=== PATIENT | male | born 1985 | race Caucasian/White ===

== ENCOUNTER 2017-03-09 19:38 | Emergency (ER) | payer OTHER ==
[~2017-03-09] VITALS: Ht 180.3 cm; Wt 66.0 kg
[~2017-03-09 19:38] MED LIST: AMOXICILLIN500 MG PO; BACTRIM DS1 TAB PO; BENADRYL 50MG C50 MG PO; CLARITIN10 MG PO; DOXYCYCL HYC100 M4 PO; KEFLEX500 M1 PO; KEPPRA500 M2 PO; LORTAB 10 PO; LORTAB 10-325 M1 TAB PO; Levaquin PO; MOTRIN800 MG PO; NAPROSYN500 MG PO; NO HOME MEDS; NUPERCAINAL1 % RE; QUETIAPINE FUM100 MG PO; ROBITUSSIN AC10 ML PO; TESSALON PER100 MG PO; TOPAMAX25 MG PO; ULTRAM50 M1 PO
[2017-03-09 20:07] LABS: HEMATOCRIT 47.7 % (39.0-50.0); IMMATURE GRANULOCYTES 0.1 % (0.0-1.0); MEAN CORPUSCULAR HGB CONC 35.6 g/L CALC (32.0-36.0); NEUT# 5.75 thou/uL (1.82-7.42); RED BLOOD COUNT 5.48 mill/uL (4.70-6.10); RED CELL DISTRI WIDTH 12.1 % (11.5-15.5)
[2017-03-09 20:16] LABS: ALBUMIN 4.4 g/dL (3.2-5.0); ALKALINE PHOSPHATASE 75 u/l (38-126); ANION GAP 18 (6-22 (CALC)); BILIRUBIN, TOTAL 0.8 mg/dL (0.0-1.4); BUN 16 mg/dL (9-20); BUN/CREATININE RATIO 17 (12-20 (CALC)); CALCIUM 9.3 mg/dL (8.4-10.2); CARBON DIOXIDE 18 mmol/l (22-30); CHLORIDE 111 mmol/l (95-108); GFR > 60 ML/MIN (>=60 (CALC)); GFR FOR AFR.AMER. > 60 ML/MIN (>=60 (CALC)); GLUCOSE 74 mg/dL (75-110); POTASSIUM 3.6 mmol/l (3.5-5.1); SGOT/AST 29 u/l (17-59); SGPT/ALT 80 u/l (21-72); SODIUM 144 mmol/l (137-146); TOTAL PROTEIN 7.2 g/dL (6.3-8.2)
[2017-03-09 20:44] VITALS: BP 104/62
== END 2017-03-09 20:52 | DRG 101 ==
LOC: ED 19:38
PROVIDERS: Emergency Medicine
DX: G40.909 Epilepsy, unspecified, not intractable, without status epilepticus (principal); F31.9 Bipolar disorder, unspecified; F41.9 Anxiety disorder, unspecified; I51.7 Cardiomegaly

== ENCOUNTER → 2018-08-11 | Outpatient (REF) | payer OTHER | END | disposition home or self-care (01) | DRG 645 | LOC: LABSPEC 12:54 | PROVIDERS: ATTEND Nurse Practitioner Family | DX: E04.9 Nontoxic goiter, unspecified (principal) ==

== ENCOUNTER → 2018-08-13 | Outpatient (REF) | payer OTHER | END | disposition home or self-care (01) | DRG 392 | LOC: DI 13:43 | PROVIDERS: ATTEND Nurse Practitioner Family | DX: R13.10 Dysphagia, unspecified (principal) ==

== ENCOUNTER 2021-04-24 13:10 | Emergency (ER) | payer SELFPAY ==
[~2021-04-24] VITALS: Ht 180.3 cm; Wt 63.6 kg
[2021-04-24] MEDS ORDERED: BACTROBAN TOP (14:17)
[2021-04-24] MEDS ORDERED: STROMECTOL3 MG PO (14:17)
[2021-04-24 14:25] VITALS: BP 125/84
== END 2021-04-24 14:25 | disposition home or self-care (01) | DRG 882 ==
LOC: ED 13:10
DX: F42.4 Excoriation (skin-picking) disorder (principal); B86 Scabies

== ENCOUNTER 2021-09-21 05:54 | Emergency (ER) | payer SELFPAY ==
[~2021-09-21] VITALS: Ht 180.3 cm; Wt 45.0 kg
[2021-09-21] VITALS (9 sets, daily range): BP systolic 103–142; BP diastolic 44–85
[~2021-09-21 05:54] MED LIST changes: +BACTROBAN TOP; +STROMECTOL3 MG PO
[2021-09-21 06:38] LABS: IMMATURE GRANULOCYTES 0.1 % (0.0-5.0); MEAN CORPUSCULAR HGB 21.5 pG CALC (26.0-32.0); MEAN CORPUSCULAR HGB CONC 29.2 g/dL CAL (32.0-36.0); NEUT# 7.76 thou/uL (1.82-7.42); RED BLOOD COUNT 5.76 mill/uL (4.70-6.10); RED CELL DISTRI WIDTH 21.2 % (11.5-15.5)
[2021-09-21 06:45] LABS: HEMATOCRIT 42.5 % (39.0-50.0); HEMOGLOBIN 12.4 g/dl (14.0-18.0); MEAN CELL VOLUME 73.8 fL CALC (80.0-100.0)
[2021-09-21 07:07] LABS: ALBUMIN 4.8 g/dL (3.2-5.0); ALKALINE PHOSPHATASE 92 u/l (38-126); ANION GAP 16 (6-22 (CALC)); BUN 22 mg/dL (9-20); BUN/CREATININE RATIO 24 (12-20 (CALC)); CARBON DIOXIDE 23 mmol/l (22-30); CHLORIDE 104 mmol/l (95-108); CREATININE 0.9 mg/dL (0.7-1.3); GFR > 60 ML/MIN (>=60 (CALC)); GFR FOR AFR.AMER. > 60 ML/MIN (>=60 (CALC)); POTASSIUM 4.1 mmol/l (3.5-5.1); SGOT/AST 37 u/l (17-59); SODIUM 139 mmol/l (137-146); TOTAL PROTEIN 8.5 g/dL (6.3-8.2)
[2021-09-21 07:08] LABS: BILIRUBIN, TOTAL 0.3 mg/dL (0.0-1.4)
[2021-09-21 07:19] LABS: MYOGLOBIN 136 ng/mL (0 - 121)
[2021-09-21] MEDS ORDERED: OXYCODONE5 M1 PO (07:47)
[2021-09-21] MEDS ORDERED: VALIUM2 MG PO ×2 (07:48→08:12)
[2021-09-21] MEDS ORDERED: OXYCODO-APAP1 TA2 PO (08:12)
[2021-09-21] MEDS ORDERED: ELIQUIS2.5 MG (08:13)
[2021-09-21 09:53] LABS: URINE BILIRUBIN - DIPSTICK NEGATIVE (NEGATIVE); URINE BLOOD DIPSTICK NEGATIVE (NEGATIVE); URINE COLOR YELLOW; URINE GLUCOSE - DIPSTICK NEGATIVE (NEGATIVE); URINE KETONE NEGATIVE (NEGATIVE); URINE LEUK ESTERASE NEGATIVE (NEGATIVE); URINE PROTEIN - DIPSTICK NEGATIVE (NEG-TRACE); URINE SPECIFIC GRAVITY 1.025; URINE UROBILINOGEN - DIPSTICK 0.2 E.U./dL (0.2)
[2021-09-21 10:00] LABS: URINE NITRITE - DIPSTICK NEGATIVE (Negative)
== END 2021-09-21 10:49 | disposition short-term general hospital (02) | DRG 101 ==
LOC: ED 05:54
PROVIDERS: Emergency Medicine
DX: G40.409 Other generalized epilepsy and epileptic syndromes, not intractable, without status epilepticus (principal); F17.200 Nicotine dependence, unspecified, uncomplicated; Z20.822 Contact with and (suspected) exposure to COVID-19
CPT/HCPCS: J1953; J2060

== ENCOUNTER 2021-10-03 11:08 | Emergency (ER) | payer SELFPAY ==
[2021-10-03] VITALS (10 sets, daily range): BP systolic 107–118; BP diastolic 67–87
[~2021-10-03] VITALS: Ht 180.3 cm; Wt 77.0 kg
[~2021-10-03 11:08] MED LIST changes: +ELIQUIS2.5 MG; +OXYCODO-APAP1 TA2 PO; +OXYCODONE5 M1 PO; +VALIUM2 MG PO
[2021-10-03 11:31] LABS: HEMATOCRIT 37.9 % (39.0-50.0); IMMATURE GRANULOCYTES 0.2 % (0.0-5.0); MEAN CORPUSCULAR HGB 21.8 pG CALC (26.0-32.0); NEUT# 4.36 thou/uL (1.82-7.42); RED BLOOD COUNT 5.05 mill/uL (4.70-6.10); RED CELL DISTRI WIDTH 20.5 % (11.5-15.5)
[2021-10-03 11:55] LABS: URINE BLOOD DIPSTICK NEGATIVE (NEGATIVE); URINE COLOR YELLOW; URINE GLUCOSE - DIPSTICK NEGATIVE (NEGATIVE); URINE KETONE 40 mg/dL (NEGATIVE); URINE LEUK ESTERASE NEGATIVE (NEGATIVE); URINE PH 5.5 (4.5-8.0); URINE PROTEIN - DIPSTICK NEGATIVE (NEG-TRACE); URINE SPECIFIC GRAVITY >=1.030; URINE UROBILINOGEN - DIPSTICK 0.2 E.U./dL (0.2)
[2021-10-03 11:57] LABS: URINE BILIRUBIN - DIPSTICK SMALL (NEGATIVE); URINE NITRITE - DIPSTICK NEGATIVE (Negative)
[2021-10-03 12:13] LABS: ALKALINE PHOSPHATASE 85 u/l (38-126); BUN 8 mg/dL (9-20); BUN/CREATININE RATIO 9 (12-20 (CALC)); CARBON DIOXIDE 19 mmol/l (22-30); CHLORIDE 110 mmol/l (95-108); CREATININE 0.9 mg/dL (0.7-1.3); ETHYL ALCOHOL 0 mg/dl (0-30); GFR > 60 ML/MIN (>=60 (CALC)); GFR FOR AFR.AMER. > 60 ML/MIN (>=60 (CALC)); SGOT/AST 38 u/l (17-59); SODIUM 139 mmol/l (137-146); TOTAL PROTEIN 7.3 g/dL (6.3-8.2)
[2021-10-03 12:14] LABS: ANION GAP 13 (6-22 (CALC)); BILIRUBIN, TOTAL 0.7 mg/dL (0.0-1.4); POTASSIUM 3.2 mmol/l (3.5-5.1)
== END 2021-10-03 14:48 | disposition short-term general hospital (02) | DRG 101 ==
LOC: ED 11:08
PROVIDERS: Family Medicine
DX: R56.9 Unspecified convulsions (principal); I42.9 Cardiomyopathy, unspecified; F17.200 Nicotine dependence, unspecified, uncomplicated; T42.76XA Underdosing of unspecified antiepileptic and sedative-hypnotic drugs, initial encounter; Z91.128 Patient's intentional underdosing of medication regimen for other reason; Z86.718 Personal history of other venous thrombosis and embolism
CPT/HCPCS: J1953